=== PATIENT | female | born 1945 | race Caucasian/White ===

== ENCOUNTER 2018-05-09 08:07 | Outpatient (CLI) | payer MEDICARE ==
[2018-05-09 08:42] LABS: #Basophils 0.1 thou/uL (0.0-0.2); #Eosinphils 0.1 thou/uL (0.0-0.7); #Monocytes 0.7 thou/uL (0.11-0.59); #Neutrophils 5.8 thou/uL (1.40-6.50); %Basophils 0.7 % (0.0-1.0); %Eosinophils 1.4 % (0.0-10.0); %Lymphocytes 37.5 % (21.0-51.0); %Monocytes 6.4 % (0.0-10.0); %Neutrophils 54.1 % (42.0-75.0); Hemoglobin 14.7 g/dL (12.0-16.0); Mean Corpuscular Hemoglobin 28.8 pg (27.0-31.0); Mean Corpuscular Volume 87.2 fL (78.0-98.0); Mean Platelet Volume 7.2 fL (7.4-10.4); Platelet Count 344 thou/uL (130-400); RBC Distribution Width 11.2 % (11.5-14.5); Red Blood Cell (RBC) Count 5.12 mill/uL (4.20-5.40); White Blood Cell (WBC) Count 10.6 thou/uL (4.8-10.8)
[2018-05-09 08:58] LABS: ALT (SGPT) 16 U/L (8-55); AST (SGOT) 16 U/L (5-34); Albumin 4.5 g/dL (3.4-4.8); Alkaline Phosphatase 54 U/L (40-150); Anion Gap 12 mmol/L (10-20); BUN (Urea Nitrogen) 15 mg/dL (9.8-20.1); Bilirubin, Total 0.8 mg/dL (0.2-1.2); Calc. Creatinine Clearance 0 mL/min (70-130); Calcium 9.6 mg/dL (7.8-10.44); Carbon Dioxide 30 mmol/L (23-31); Cardiac Risk 3.6 (Less than 4.5); Chloride 105 mmol/L (98-107); Cholesterol 167 mg/dl (< 200 Desired); Estimated GFR-MDRD 72; Globulin 2.8 g/dL (2.4-3.5); Glucose 98 mg/dL (83-110); HDL Cholesterol 46 mg/dL (>60 Neg Risk); LDL Cholesterol, Calculated 97 mg/dL; Potassium 3.7 mmol/L (3.5-5.1); Protein, Total 7.3 g/dL (6.0-8.3); Sodium 143 mmol/L (136-145); Triglycerides 119 mg/dL (Less than 150)
--- NOTE | 2018-05-09 09:07 | RAD ---
PA AND LATERAL CHEST: History: Bronchitis, cough. FINDINGS: Comparison is made with exam of 02-06-15. The heart size is borderline. The lungs are well expanded without focal areas of consolidation, pneum othoraces or pleural effusions. There are degenerative changes of the spine. IMPRESSION: No radiographic evidence of acute cardiopulmonary process. POS: [facility]
== END 2018-05-09 08:08 | disposition home or self-care (01) ==
LOC: SCSRAD 08:07
PROVIDERS: ATTEND Nurse Practitioner Family
DX: Z00.00 Encounter for general adult medical examination without abnormal findings (principal); F41.9 Anxiety disorder, unspecified; R53.83 Other fatigue; E78.1 Pure hyperglyceridemia; Z68.34 Body mass index [BMI] 34.0-34.9, adult
CPT/HCPCS: 36415; 71046; 80053; 80061; 84443; 85025

== ENCOUNTER 2018-07-25 14:08 | Outpatient (CLI) | payer MEDICARE, OTHER ==
--- NOTE | 2018-07-25 15:31 | ULT ---
RIGHT LOWER EXTREMITY VENOUS DOPPLER ULTRASOUND: 07/25/2018 HISTORY: Knee pain. Assess for DVT. COMPARISON: None. TECHNIQUE: Multiplanar butt-scale sonographic imaging of the venous structures of the right lower extremity obta ined with color-flow and spectral analysis. FINDINGS: The right common femoral vein, the greater saphenous vein, the profunda femoral vein, the femoral vei n, the popliteal vein, and the posterior tibial vein are patent. There is normal blood flow, augment ation, and compression within the deep venous system on the right. No evidence for deep venous throm bosis of the right lower extremity. IMPRESSION: No evidence for right lower extremity deep venous thrombosis. POS: [facility]
== END 2018-07-25 14:09 | disposition home or self-care (01) ==
LOC: SCSULT 14:08
PROVIDERS: ATTEND Nurse Practitioner Family
DX: M79.604 Pain in right leg (principal)

== ENCOUNTER 2018-07-25 14:22 | Outpatient (CLI) | payer MEDICARE, OTHER ==
--- NOTE | 2018-07-25 15:32 | RAD ---
RIGHT KNEE FOUR VIEWS: 07/25/2018 HISTORY: Knee pain. COMPARISON: None. FINDINGS: No significant knee joint effusion. There is moderate patellofemoral joint space narrowing with post erior patellar osteophyte formation. There is medial and lateral compartment chondrocalcinosis with mild medial and lateral compartment narrowing. No acute fracture or dislocation. IMPRESSION: No acute osseous abnormality. POS: [facility]
== END 2018-07-25 14:23 | disposition home or self-care (01) ==
LOC: SCSRAD 14:22
PROVIDERS: ATTEND Nurse Practitioner Family
DX: M79.604 Pain in right leg (principal)

== ENCOUNTER 2019-03-07 09:40 | Outpatient (CLI) | payer MEDICARE ==
[~2019-03-07 09:40] MED LIST: Iopamidol 300 61% 100 ML VIAL FS ONE
--- NOTE | 2019-03-07 11:11 | CT ---
CT ABDOMEN AND PELVIS WITH IV CONTRAST: HISTORY: Right lower quadrant pain FINDINGS: The lung bases are unremarkable except for a calcified granuloma in the right lung base. The liver, spleen, pancreas, adrenal glands appear normal. Tiny low-density lesions in the kidneys ar e likely cysts. A circumaortic left renal vein is present. The patient is post cholecystectomy and hysterectomy. No free air, free fluid or lymphadenopathy seen in the abdomen or pelvis. The small bowel loops are n ot abnormally dilated. A normal-appearing appendix is seen. There is colonic diverticulosis without evidence of diverticulitis. There are vascular calcifications without evidence of aneurysmal dilatation of the abdominal aorta. P ostop changes are present in the lower lumbar spine. IMPRESSION: 1. No evidence of appendicitis. 2. Colonic diverticulosis.
--- NOTE | 2019-03-07 11:53 | CT ---
CT paranasal sinuses noncontrast: DATE: 03/07/2019 HISTORY: 73-year-old female with sinusitis. FINDINGS: Frontal, ethmoid, and sphenoid, sinuses, are clear. Tiny mucus retention cyst at the floor of right m axillary sinus. Small mucous retention cyst at the floor of left maxillary sinus. Otherwise, the rest of the maxillary sinuses are clear. Nasal cavity is clear. Mild leftward nasal septal deviation. Subtle left middle turbinate. Bilateral ostiomeatal units are patent and clear. Frontal recesses and sphenoethmoidal recesses are clear. Partial effacement of right fossa of Rosenmuller. This is typically due to apposition of adjacent mucosal tissues and or secretions. Less commonly, neoplasm in this location can also result in this appearance. IMPRESSION: 1. Other than small mucus retention cysts the floors of the maxillary sinuses, the paranasal sinuses are clear. 2. Recommend direct visualization of right lateral pharyngeal recess.
== END 2019-03-07 09:41 | disposition home or self-care (01) ==
LOC: SCSCT 09:40
PROVIDERS: ATTEND Allergy & Immunology
DX: K37 Unspecified appendicitis (principal); J01.90 Acute sinusitis, unspecified; K57.30 Diverticulosis of large intestine without perforation or abscess without bleeding
CPT/HCPCS: 74177; 82565; Q9967

== ENCOUNTER 2019-06-27 12:10 | Outpatient (CLI) | payer MEDICARE ==
--- NOTE | 2019-06-27 16:58 | MMO ---
Bilateral MAMMO Bilat Screen [facility]. CLINICAL HISTORY: Patient is 73 years old and is seen for screening. The patient has the following family history of breast cancer: daughter, at age 46. The patient has no personal history of cancer. VIEWS: The views performed were: bilateral craniocaudal with tomosynthesis and bilateral mediolateral oblique with tomosynthesis. FILMS COMPARED: The present examination has been compared to prior imaging studies performed at [facility] on 12/22/1992 and 12/23/2005, and at [facility] on 07/03/1997. This study has been interpreted with the assistance of computer-aided detection. MAMMOGRAM FINDINGS: There are scattered fibroglandular densities. There are new calcifications seen in the upper-outer region of the right breast. In the left breast, there are no suspicious masses, calcifications or areas of architectural distortion. IMPRESSION: NEW CALCIFICATIONS IN THE RIGHT BREAST REQUIRE ADDITIONAL EVALUATION. MAGNIFICATION VIEWS ARE RECOMMENDED. THE RESULTS OF THIS EXAM WERE SENT TO THE PATIENT. ACR BI-RADS Category 0 - Incomplete: Need additional imaging evaluation. [facility] will notify the patient of the need for additional imaging services. MAMMOGRAPHY NOTE: 1. A negative mammogram report should not delay a biopsy if a dominant of clinically suspicious mass is present. 2. Approximately 10% to 15% of breast cancers are not detected by mammography. 3. Adenosis and dense breasts may obscure an underlying neoplasm. Reported by: KELLY MALAVE MD Electonically Signed: [id number]
== END 2019-06-27 12:11 | disposition home or self-care (01) ==
LOC: BICMAMMO 12:10
PROVIDERS: ATTEND Nurse Practitioner Family
DX: Z12.31 Encounter for screening mammogram for malignant neoplasm of breast (principal); R92.1 Mammographic calcification found on diagnostic imaging of breast; Z80.3 Family history of malignant neoplasm of breast
CPT/HCPCS: 77063; 77067

== ENCOUNTER 2019-07-09 13:11 | Outpatient (CLI) | payer MEDICARE ==
--- NOTE | 2019-07-09 13:53 | MMO ---
Right Breast MAMMO Unilat Diag [facility]. CLINICAL HISTORY: Patient is 73 years old and is seen for diagnostic exam. VIEWS: The views performed were: . FILMS COMPARED: The present examination has been compared to prior imaging studies performed at [facility] on 12/22/1992, 12/23/2005 and 06/27/2019, and at [facility] on 07/03/1997. This study has been interpreted with the assistance of computer-aided detection. MAMMOGRAM FINDINGS: There are scattered fibroglandular densities. There are skin calcifications seen in the outer region of the right breast. There are no suspicious masses, suspicious calcifications, or new areas of architectural distortion. IMPRESSION: THERE IS NO MAMMOGRAPHIC EVIDENCE OF MALIGNANCY. A ROUTINE FOLLOW-UP MAMMOGRAM IN 1 YEAR IS RECOMMENDED. THE RESULTS OF THIS EXAM WERE SENT TO THE PATIENT. ACR BI-RADS Category 2 - Benign finding MAMMOGRAPHY NOTE: 1. A negative mammogram report should not delay a biopsy if a dominant of clinically suspicious mass is present. 2. Approximately 10% to 15% of breast cancers are not detected by mammography. 3. Adenosis and dense breasts may obscure an underlying neoplasm. Reported by: TRACE KENDALL MD Electonically Signed: [id number]
== END 2019-07-09 13:12 | disposition home or self-care (01) ==
LOC: BICMAMMO 13:11
PROVIDERS: ATTEND Nurse Practitioner Family
DX: R92.1 Mammographic calcification found on diagnostic imaging of breast (principal)
CPT/HCPCS: 77065; G0279

== ENCOUNTER 2022-10-12 14:44 | Emergency (ER) | payer MEDICARE ==
[2022-10-12 16:02] LABS: #Eosinphils 0.2 thou/uL (0.0-0.7); #Lymphocytes 2.7 thou/uL (1.20-3.40); #Monocytes 0.7 thou/uL (0.11-0.59); #Neutrophils 6.7 thou/uL (1.40-6.50); %Basophils 0.1 % (0.0-1.0); %Eosinophils 1.5 % (0.0-10.0); %Lymphocytes 26.2 % (21.0-51.0); %Monocytes 6.6 % (0.0-10.0); %Neutrophils 65.6 % (42.0-75.0); Hemoglobin 14.7 g/dL (12.0-16.0); Mean Corpuscular HGB CONC 32.5 g/dL (32.0-36.0); Mean Corpuscular Volume 95.5 fl (78.0-98.0); Mean Platelet Volume 7.7 fL (7.4-10.4); Platelet Count 282 10x3/uL (130-400); RBC Distribution Width 12.4 % (11.5-14.5); Red Blood Cell (RBC) Count 4.75 mill/uL (4.20-5.40); White Blood Cell (WBC) Count 10.2 10x3/uL (4.8-10.8)
[2022-10-12 16:24] LABS: ALT (SGPT) 9 U/L (8-55); AST (SGOT) 17 U/L (5-34); Albumin 4.5 g/dL (3.4-4.8); Alkaline Phosphatase 68 U/L (40-110); Anion Gap 13 mmol/L (10-20); BUN (Urea Nitrogen) 11 mg/dL (9.8-20.1); Bilirubin, Total 0.9 mg/dL (0.2-1.2); Calc. Creatinine Clearance 0 mL/min (70-130); Calcium 9.3 mg/dL (7.8-10.44); Carbon Dioxide 26 mmol/L (23-31); Chloride 106 mmol/L (98-107); Estimated GFR 59; Globulin 2.6 g/dL (2.4-3.5); Glucose 83 mg/dL (83-110); Potassium 3.8 mmol/L (3.5-5.1); Protein, Total 7.1 g/dL (5.8-8.1); Sodium 141 mmol/L (136-145)
== END 2022-10-12 17:30 | disposition home or self-care (01) ==
LOC: ERS 14:44
DX: R60.0 Localized edema (principal); K21.9 Gastro-esophageal reflux disease without esophagitis
CPT/HCPCS: 36415; 80053; 83880; 85025

== ENCOUNTER → 2023-01-17 | Day surgery (SDC) | payer MEDICARE | LOC: SPEC 08:51 | PROVIDERS: ATTEND Internal Medicine Hematology & Oncology | DX: C34.01 Malignant neoplasm of right main bronchus (principal); Z45.2 Encounter for adjustment and management of vascular access device | CPT/HCPCS: 36569; C1751 ==

== ENCOUNTER 2023-01-18 08:45 | Outpatient (CLI) | payer MEDICARE | END 2023-01-18 08:46 | disposition home or self-care (01) | LOC: PET 08:45 | PROVIDERS: ATTEND Internal Medicine Hematology & Oncology | DX: C77.0 Secondary and unspecified malignant neoplasm of lymph nodes of head, face and neck (principal); C34.01 Malignant neoplasm of right main bronchus | CPT/HCPCS: 78815; A9552 ==

== ENCOUNTER 2023-01-25 11:37 | Day surgery (SDC) | payer MEDICARE ==
[2023-01-24 16:39] VITALS: BMI 28.1
[2023-01-25] MEDS ORDERED: Bupivacaine/Epinephrine 0.25% 30 ML VIAL ONE (11:54)
[2023-01-25] MEDS ORDERED: Lidocaine 2% PF 5 ML VIAL ONE (11:54)
[2023-01-25] MEDS ORDERED: fentaNYL PF 100 MCG/2 ML SYRINGE ONE (11:55)
[2023-01-25] MEDS ORDERED: PROPOFOL 40 ML ONE (11:55)
[2023-01-25] MEDS ORDERED: fentaNYL 50 mcg/mL 1 mL Vial ONE (12:10)
[2023-01-25] MEDS ORDERED: CEFAZOLIN 2 GM VIAL ONE (12:24)
[2023-01-25] MEDS ORDERED: Sodium Chloride 0.9% 100 ML ONE (12:24)
[2023-01-25] MEDS ORDERED: HYDROmorphone 2 MG/ML VIAL ONE (12:31)
[2023-01-25] MEDS ORDERED: PROPOFOL 200 MG/20 ML VIAL ONE (12:38)
[2023-01-25] MEDS ORDERED: Ondansetron PF 4 MG/2 ML Vial ONE (12:38)
[2023-01-25] MEDS ORDERED: Lidocaine 1% PF 5 ML VIAL ONE (12:38)
[2023-01-25] MEDS ORDERED: Dexamethasone 20 MG/5 ML VIAL ONE (12:38)
[2023-01-25] MEDS ORDERED: ePHEDrine Sulfate 50 MG/10 ML VIAL ONE (12:38)
[2023-01-25] MEDS ORDERED: PHENYLEPHRINE-NS 100 MCG/ML 10 ML SYRINGE ONE (12:38)
== END 2023-01-25 15:00 | disposition home or self-care (01) ==
LOC: SDC 11:37
PROVIDERS: ATTEND Surgery
PROC: 05HN33Z Insertion of Infusion Device into Left Internal Jugular Vein, Percutaneous Approach (ICD-10-PCS; principal; 2023-01-25)
DX: C34.90 Malignant neoplasm of unspecified part of unspecified bronchus or lung (principal); Z88.6 Allergy status to analgesic agent; Z91.018 Allergy to other foods
CPT/HCPCS: 36561; 71045; 77412; C1788; J3010; J1100; J1170; J1642; J2001; J2405; J2704; J3490

== ENCOUNTER → 2023-03-17 | Outpatient (CLI) | payer MEDICARE | LOC: PET 09:30 | PROVIDERS: ATTEND Internal Medicine Hematology & Oncology | DX: C77.0 Secondary and unspecified malignant neoplasm of lymph nodes of head, face and neck (principal); C34.01 Malignant neoplasm of right main bronchus | CPT/HCPCS: 78815; A9552 ==

== ENCOUNTER 2023-03-18 08:44 | Day surgery (SDC) | payer MEDICARE ==
[~2023-03-18 08:44] MED LIST changes: +Acetaminophen 500 MG TAB PO SCH; -Iopamidol 300 61% 100 ML VIAL FS ONE; +diphenhydrAMINE 25 MG CAP PO SCH
[2023-03-18] MEDS ORDERED: diphenhydrAMINE 25 MG CAP ONE (10:32)
[2023-03-18 15:02] VITALS: BP 133/58; TEMP 98.3
== END 2023-03-18 15:15 | disposition home or self-care (01) ==
LOC: ONC/OP 08:44
PROVIDERS: ATTEND Internal Medicine Hematology & Oncology
DX: D64.9 Anemia, unspecified (principal); D69.6 Thrombocytopenia, unspecified
CPT/HCPCS: 36430; 86850; 86900; 86901; 86920; P9016; J1642

== ENCOUNTER 2023-05-27 10:15 | Outpatient (CLI) | payer MEDICARE, OTHER | END 2023-05-27 10:16 | disposition home or self-care (01) | LOC: PET 10:15 | PROVIDERS: ATTEND Internal Medicine Hematology & Oncology | DX: C34.01 Malignant neoplasm of right main bronchus (principal); C77.0 Secondary and unspecified malignant neoplasm of lymph nodes of head, face and neck; M79.89 Other specified soft tissue disorders | CPT/HCPCS: 78815; A9552 ==